=== PATIENT | female | born 1990 | race Caucasian/White ===

== ENCOUNTER 2017-09-15 08:06 | Emergency (ER) | payer MEDICAID ==
--- NOTE | 2017-09-15 08:36 | EDM.PDOC ---
ED HPI GENERAL MEDICAL PROBLEM - General Chief Complaint: ENT Problem Stated Complaint: SORE THROAT Time Seen by Provider: 09/15/17 08:17 Source of Information: Reports: Patient History Limitations: Reports: No Limitations - History of Present Illness INITIAL COMMENTS - FREE TEXT/NARRATIVE: History of present illness: []Patient had a fever 4 days of sore throat for 3 days she denies any cough, nausea, vomiting or diarrhea. She did have a mild headache but now her only symptom is sore throat. She is not had any exposures to strep but has not had strep in the past. Review of systems: As per history of present illness and below otherwise all systems reviewed and negative. Past medical history: As per history of present illness and as reviewed below otherwise noncontributory. Surgical history: As per history of present illness and as reviewed below otherwise noncontributory. Social history: No reported history of drug or alcohol abuse. Family history: As per history of present illness and as reviewed below otherwise noncontributory. Physical exam: General: Well developed, well nourished in NAD HEENT: Atraumatic, normocephalic, pupils reactive, negative for conjunctival pallor or scleral icterus, mucous membranes moist, throat erythematous no plaques or exudates, neck supple, nontender, trachea midline. No stridor Lungs: Clear to auscultation, breath sounds equal bilaterally, chest nontender. Heart: S1S2, regular, negative for clicks, rubs, or JVD. Abdomen: Soft, nondistended, nontender. Negative for masses or hepatosplenomegaly. Negative for costovertebral tenderness. Pelvis: Stable nontender. Genitourinary: Deferred. Rectal: Deferred. Extremities: Atraumatic, negative for cords or calf pain. Neurovascular unremarkable. Neuro: Awake, alert, oriented. Cranial nerves II through XII unremarkable. Cerebellum unremarkable. Motor and sensory unremarkable throughout. Exam nonfocal. Diagnostics: []Rapid strep and Strep culture initially positive Therapeutics: [] Impression: []Strep throat Plan: []Z-Fabián as directed follow-up with PMD return if symptoms worsen Definitive disposition and diagnosis as appropriate pending reevaluation and review of above. Throat Pain Score (Numeric/FACES): 8 - Related Data Allergies Allergy/AdvReac Type Severity Reaction Status Date / Time amoxicillin Allergy Rash Verified 09/15/17 08:29 Penicillins Allergy Anaphylactic Verified 09/15/17 08:29 Shock Home Meds: Home Meds Azithromycin [Zithromax] 250 mg PO DAILY #6 tablet 09/15/17 [Rx] Past Medical History - Past Health History Medical/Surgical History: Denies Medical/Surgical History Social & Family History - Family History Family Medical History: Noncontributory - Tobacco Use Smoking Status *Q: Current Every Day Smoker Years of Tobacco use: 1 Packs/Tins Daily: 1 - Caffeine Use Caffeine Use: Reports: Coffee, Soda - Recreational Drug Use Recreational Drug Use: No ED ROS ENT - Review of Systems Review Of Systems: See Below (See history of present illness) ED EXAM, ENT - Physical Exam Exam: See Below (See history of present illness) Course - Vital Signs Last Recorded V/S: Last Vital Signs Temp 36.3 C 09/15/17 08:24 Pulse 92 09/15/17 08:24 Resp 20 09/15/17 08:24 BP 120/78 09/15/17 08:24 Pulse Ox 99 09/15/17 08:24 Departure - Departure Time of Disposition: :28 Disposition: Home, Self-Care 01 Condition: Good Clinical Impression: Strep throat - Discharge Information Prescriptions: Azithromycin [Zithromax] 250 mg PO DAILY #6 tablet Referrals: PCP,None [Primary Care Provider] - Forms: ED Department Discharge Additional Instructions: The following information is given to patients seen in the emergency department who are being discharged to home. This information is to outline your options for follow-up care. We provide all patients seen in our emergency department with a follow-up referral. The need for follow-up, as well as the timing and circumstances, are variable depending upon the specifics of your emergency department visit. If you don't have a primary care physician on staff, we will provide you with a referral. We always advise you to contact your personal physician following an emergency department visit to inform them of the circumstance of the visit and for follow-up with them and/or the need for any referrals to a consulting specialist. The emergency department will also refer you to a specialist when appropriate. This referral assures that you have the opportunity for follow-up care with a specialist. All of these measure are taken in an effort to provide you with optimal care, which includes your follow-up. Under all circumstances we always encourage you to contact your private physician who remains a resource for coordinating your care. When calling for follow-up care, please make the office aware that this follow-up is from your recent emergency room visit. If for any reason you are refused follow-up, please contact the [facility] Emergency Department at and asked to speak to the emergency department charge nurse. Chuck as directed follow-up with PMD [facility] [address] [place] [id number]
== END 2017-09-15 09:37 | disposition home or self-care (01) ==
LOC: MW.ED 08:06
DX: J02.0 Streptococcal pharyngitis (principal); F17.210 Nicotine dependence, cigarettes, uncomplicated; Z88.1 Allergy status to other antibiotic agents; Z88.0 Allergy status to penicillin
CPT/HCPCS: 87880; 99282; 99283

== ENCOUNTER 2017-09-18 10:02 | Emergency (ER) | payer MEDICAID ==
--- NOTE | 2017-09-18 10:16 | EDM.PDOC ---
ED HPI GENERAL MEDICAL PROBLEM - General Chief Complaint: Upper Extremity Injury/Pain Stated Complaint: RT WRIST HURTS Time Seen by Provider: 09/18/17 10:14 Source of Information: Reports: Patient History Limitations: Reports: No Limitations - History of Present Illness INITIAL COMMENTS - FREE TEXT/NARRATIVE: History of present illness: [27-year-old female whose in complaining of right forearm pain. Patient indicates it hurts to rotate her wrist internally. Patient denies any known trauma indicates she woke up that way approximate or 3 days ago and it has gotten progressively worse. Patient acute she does have a splint for her other hand are provided motion injury but this has been her good hand.] Review of systems: As per history of present illness and below otherwise all systems reviewed and negative. Past medical history: As per history of present illness and as reviewed below otherwise noncontributory. Surgical history: As per history of present illness and as reviewed below otherwise noncontributory. Social history: No reported history of drug or alcohol abuse. Family history: As per history of present illness and as reviewed below otherwise noncontributory. Physical exam: HEENT: Atraumatic, normocephalic, pupils reactive, negative for conjunctival pallor or scleral icterus, mucous membranes moist, throat clear, neck supple, nontender, trachea midline. Lungs: Clear to auscultation, breath sounds equal bilaterally, chest nontender. Heart: S1S2, regular, negative for clicks, rubs, or JVD. Abdomen: Soft, nondistended, nontender. Negative for masses or hepatosplenomegaly. Negative for costovertebral tenderness. Pelvis: Stable nontender. Genitourinary: Deferred. Rectal: Deferred. Extremities: Right forearm without deformity but with some point tenderness on the ulnar aspect guarding with rotation passive and active, negative for cords or calf pain. Neurovascular unremarkable. Neuro: Awake, alert, oriented. Cranial nerves II through XII unremarkable. Cerebellum unremarkable. Motor and sensory unremarkable throughout. Exam nonfocal. Diagnostics: [X-ray right wrist] Therapeutics: [Splint] Impression: [#1 wrist pain] Plan: [Splint, OTC pain medicine, follow-up with orthopedic] Definitive disposition and diagnosis as appropriate pending reevaluation and review of above. Right Arm Pain Score (Numeric/FACES): 9 - Related Data Allergies Allergy/AdvReac Type Severity Reaction Status Date / Time amoxicillin Allergy Rash Verified 09/18/17 10:28 Penicillins Allergy Anaphylactic Verified 09/18/17 10:28 Shock Home Meds: Home Meds Azithromycin [Zithromax] 250 mg PO DAILY #6 tablet 09/15/17 [Rx] Past Medical History - Past Health History Medical/Surgical History: Denies Medical/Surgical History Social & Family History - Family History Family Medical History: Noncontributory - Tobacco Use Smoking Status *Q: Current Every Day Smoker Years of Tobacco use: 1 Packs/Tins Daily: 1 - Caffeine Use Caffeine Use: Reports: Coffee, Soda - Recreational Drug Use Recreational Drug Use: No Review of Systems - Review of Systems Review Of Systems: See Below (History of present illness) ED EXAM, GENERAL - Physical Exam Exam: See Below (See history of present illness) Course - Vital Signs Last Recorded V/S: Last Vital Signs Temp 36.2 C 09/18/17 10:25 Pulse 88 09/18/17 10:25 Resp 18 09/18/17 10:25 BP 115/78 09/18/17 10:25 Pulse Ox 99 09/18/17 10:25 - Orders/Labs/Meds Orders: Active Orders 24 hr Category Date Time Status Wrist Comp Min 3V Rt [CR] Stat Exams 09/18/17 10:08 Taken Labs: Laboratory Tests 09/18/17 Range/Units 10:12 Urine HCG, Qual NEGATIVE (NEGATIVE) Departure - Departure Time of Disposition: 11:34 Disposition: Home, Self-Care 01 Condition: Good Clinical Impression: Wrist pain - Discharge Information Instructions: Cast or Splint Care, [id number] Referrals: PCP,None [Primary Care Provider] - Forms: ED Department Discharge Additional Instructions: The following information is given to patients seen in the emergency department who are being discharged to home. This information is to outline your options for follow-up care. We provide all patients seen in our emergency department with a follow-up referral. The need for follow-up, as well as the timing and circumstances, are variable depending upon the specifics of your emergency department visit. If you don't have a primary care physician on staff, we will provide you with a referral. We always advise you to contact your personal physician following an emergency department visit to inform them of the circumstance of the visit and for follow-up with them and/or the need for any referrals to a consulting specialist. The emergency department will also refer you to a specialist when appropriate. This referral assures that you have the opportunity for follow-up care with a specialist. All of these measure are taken in an effort to provide you with optimal care, which includes your follow-up. Under all circumstances we always encourage you to contact your private physician who remains a resource for coordinating your care. When calling for follow-up care, please make the office aware that this follow-up is from your recent emergency room visit. If for any reason you are refused follow-up, please contact the [facility] Emergency Department at and asked to speak to the emergency department charge nurse. Keep splint on as directed Follow-up with or so is referred Return to ED as needed as discussed [facility] [address], [address] [place] [address]
--- NOTE | 2017-09-19 15:12 | CR ---
EXAM DATE: 09/18/17 PATIENT'S AGE: 27 Patient: VICKI SILVA Facility: [place], [place] Site . Site : 1990 Study: XRay Extremity Right wrist [id number]/29/2017 11:16:54 AM Ordering Physician: Doctor Heart Final Report: HISTORY: Right wrist swelling, decreased range of motion. TECHNIQUE: Three views of the right wrist. COMPARISON: No prior. FINDINGS: There is no acute fracture. Ulnar minus variance is present. Mild arthrosis of the DRUJ. No erosions. No radiopaque foreign body or abnormal soft tissue gas. IMPRESSION: 1. No acute fracture. 2. Ulnar minus variance. Dictated by Ethan Carson MD @ 09/18/2017 11:29:52 AM Dictated by: Ethan Carson MD @ 09/18/2017 11:29:57 (Electronic Signature) Report Signed by Proxy. MTDCurtis
== END 2017-09-18 11:50 | disposition home or self-care (01) ==
LOC: MW.ED 10:02
DX: M25.531 Pain in right wrist (principal); Z88.1 Allergy status to other antibiotic agents; F17.210 Nicotine dependence, cigarettes, uncomplicated; Z88.0 Allergy status to penicillin
CPT/HCPCS: 73110-26-RT; 73110-RT; 81025; 99282; 99283

== ENCOUNTER 2018-05-13 21:46 | Emergency (ER) | payer SELFPAY ==
[2018-05-13] MEDS ORDERED: Benzocaine 20% Topical Spray UD MUCMEM ONE (22:02)
[2018-05-13] MEDS ORDERED: Lidocaine 2% Viscous Solution 15 ML Cup PO ONE (22:03)
--- NOTE | 2018-05-13 22:10 | EDM.PDOC ---
ED HPI GENERAL MEDICAL PROBLEM - General Chief Complaint: General Stated Complaint: TOOTHACHE Time Seen by Provider: 05/13/18 21:55 - History of Present Illness INITIAL COMMENTS - FREE TEXT/NARRATIVE: HISTORY AND PHYSICAL: History of present illness: The patient is a healthy 27-year-old female who presents with complaints of pain to her upper left molar area where she has fillings and has a old chipped tooth that has started to cause pain today. She has had no fevers chills or other systemic complaints. She has some facial swelling has been using ice to the area. She's been using [id number] meds and they have not helped so she is here for pain management. She has not made an appointment yet with the dentist. Patient denies and says she took a test today which was negative Review of systems: As per history of present illness and below otherwise all systems reviewed and negative. Past medical history: As per history of present illness and as reviewed below otherwise noncontributory. Surgical history: As per history of present illness and as reviewed below otherwise noncontributory. Social history: No reported history of drug or alcohol abuse. Family history: As per history of present illness and as reviewed below otherwise noncontributory. Physical exam: General: Well-developed well-nourished female was only slight swelling of the left side of her face and vital signs were noted by me HEENT: Atraumatic, normocephalic, pupils reactive, negative for conjunctival pallor or scleral icterus, mucous membranes moist, throat clear, neck supple, nontender, trachea midline. There is no cervical adenopathy or nuchal rigidity. There are several areas of dental decay and also poor filling seen the most noteworthy is the left upper molar area where there are 3 teeth with old silver fillings and there is tenderness to palpation of all of those but no gum swelling or fluctuance. Lungs: Clear to auscultation, breath sounds equal bilaterally, chest nontender. Heart: S1S2, regular rate and rhythm no overt murmurs Abdomen: Soft, nondistended, nontender. NABS Pelvis: Deferred Genitourinary: Deferred. Rectal: Deferred. Extremities: Atraumatic, negative for cords or calf pain. Neurovascular unremarkable. Neuro: Awake, alert, oriented. Cranial nerves II through XII unremarkable. Cerebellum unremarkable. Motor and sensory unremarkable throughout. Exam nonfocal. Diagnostics: [] Therapeutics: Dental balls I will give him clindamycin as the patient has an allergy to amoxicillin, the dental balls as above, and some tramadol for sleep. Impression: Dental pain/caries Definitive disposition and diagnosis as appropriate pending reevaluation and review of above. 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 [No Known Home Meds] 05/13/18 [History] Past Medical History - Past Health History Medical/Surgical History: Denies Medical/Surgical History HEENT History: Reports: None Cardiovascular History: Reports: None Respiratory History: Reports: None Gastrointestinal History: Reports: None Genitourinary History: Reports: None TOE LASTER History: Reports: Musculoskeletal History: Reports: None Neurological History: Reports: None Psychiatric History: Reports: None Endocrine/Metabolic History: Reports: None Hematologic History: Reports: None Immunologic History: Reports: None Oncologic (Cancer) History: Reports: None Dermatologic History: Reports: None - Infectious Disease History Infectious Disease History: Reports: None - Past Surgical History Head Surgeries/Procedures: Reports: None Social & Family History - Family History Family Medical History: Noncontributory - Tobacco Use Smoking Status *Q: Current Some Day Smoker Years of Tobacco use: 1 Packs/Tins Daily: 0.5 - Caffeine Use Caffeine Use: Reports: Coffee, Soda - Recreational Drug Use Recreational Drug Use: No ED ROS GENERAL - Review of Systems Review Of Systems: ROS reveals no pertinent complaints other than HPI. ED EXAM, GENERAL - Physical Exam Exam: See Below (See dictation) Course - Vital Signs Last Recorded V/S: Last Vital Signs Temp 36.2 C 05/13/18 21:54 Pulse 81 05/13/18 21:54 Resp 18 05/13/18 21:54 BP 111/74 05/13/18 21:54 Pulse Ox 98 05/13/18 21:54 - Orders/Labs/Meds Meds: Medications Discontinued Medications Generic Name Dose Route Start Last Admin Trade Name Freq PRN Reason Stop Dose Admin Benzocaine 2 each 05/13/18 22:02 Hurricaine One 20% MUCMEM 05/13/18 22:03 ONETIME ONE Lidocaine HCl 15 ml 05/13/18 22:03 Xylocaine 2% Viscous PO 05/13/18 22:04 ONETIME ONE Departure - Departure Time of Disposition: 22:09 Disposition: Home, Self-Care 01 Condition: Good Clinical Impression: Pain, dental - Discharge Information Referrals: PCP,None [Primary Care Provider] - Additional Instructions: The following information is given to patients seen in the emergency department who are being discharged to home. This information is to outline your options for follow-up care. We provide all patients seen in our emergency department with a follow-up referral. The need for follow-up, as well as the timing and circumstances, are variable depending upon the specifics of your emergency department visit. If you don't have a primary care physician on staff, we will provide you with a referral. We always advise you to contact your personal physician following an emergency department visit to inform them of the circumstance of the visit and for follow-up with them and/or the need for any referrals to a consulting specialist. The emergency department will also refer you to a specialist when appropriate. This referral assures that you have the opportunity for followup care with a specialist. All of these measure are taken in an effort to provide you with optimal care, which includes your followup. Under all circumstances we always encourage you to contact your private physician who remains a resource for coordinating your care. When calling for followup care, please make the office aware that this follow-up is from your recent emergency room visit. If for any reason you are refused follow-up, please contact the [facility] emergency department at and ask to speak to the emergency department charge nurse. [facility] Primary care- Internal [place] [address] Please use the list of resources you have been given today to find a dentist for further definitive care and management of your tooth problem. Ice to face for swelling and use [id number] Tylenol and ibuprofen as well as the dental balls you have been given today. Take clindamycin you have been given until finished. Use the tramadol as needed for sleep only and only take them when you're at home and going to bed. Return to ER as needed and as discussed
[2018-05-13] MEDS ORDERED: traMADol 50 MG Tab PO ONE (22:30)
== END 2018-05-13 22:45 | disposition home or self-care (01) ==
LOC: MW.ED 21:46
DX: K02.9 Dental caries, unspecified (principal); F17.210 Nicotine dependence, cigarettes, uncomplicated; Z88.0 Allergy status to penicillin
CPT/HCPCS: 99283; A9270

== ENCOUNTER 2019-11-12 14:33 | Emergency (ER) | payer MEDICAID ==
[2019-11-12] MEDS ORDERED: Azithromycin 250 MG Tab PO ONE (16:37)
--- NOTE | 2019-11-12 16:44 | EDM.PDOC ---
ED HPI GENERAL MEDICAL PROBLEM - General Chief Complaint: ENT Problem Stated Complaint: STREP Time Seen by Provider: 11/12/19 16:00 Source of Information: Reports: Patient History Limitations: Reports: No Limitations - History of Present Illness Onset: Gradual Location: Reports: Other (throat) Severity: Mild Worsens with: Reports: Eating Associated Symptoms: Reports: No Other Symptoms Throat Pain Score (Numeric/FACES): 3 - Related Data Allergies Allergy/AdvReac Type Severity Reaction Status Date / Time amoxicillin Allergy Rash Verified 11/12/19 16:06 Penicillins Allergy Anaphylactic Verified 11/12/19 16:06 Shock Home Meds: Home Meds Azithromycin 250 mg PO TID 7 Days #21 tablet 11/12/19 [Rx] Past Medical History - Past Health History Medical/Surgical History: Denies Medical/Surgical History HEENT History: Reports: None Cardiovascular History: Reports: None Respiratory History: Reports: None Gastrointestinal History: Reports: None Genitourinary History: Reports: None 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: Musculoskeletal History: Reports: None Neurological History: Reports: None Psychiatric History: Reports: None Endocrine/Metabolic History: Reports: None Hematologic History: Reports: None Immunologic History: Reports: None Oncologic (Cancer) History: Reports: None Dermatologic History: Reports: None - Infectious Disease History Infectious Disease History: Reports: None - Past Surgical History Head Surgeries/Procedures: Reports: None Social & Family History - Family History Family Medical History: Noncontributory - Tobacco Use Smoking Status *Q: Current Every Day Smoker Years of Tobacco use: 3 Packs/Tins Daily: 0.5 - Caffeine Use Caffeine Use: Reports: Coffee, Soda - Recreational Drug Use Recreational Drug Use: No ED ROS ENT - Review of Systems Review Of Systems: See Below Constitutional: Reports: No Symptoms HEENT: Reports: Throat Pain (right side of throat.) Respiratory: Reports: No Symptoms Endocrine: Reports: No Symptoms GI/Abdominal: Reports: No Symptoms : Reports: No Symptoms Musculoskeletal: Reports: No Symptoms Skin: Reports: No Symptoms Neurological: Reports: No Symptoms Psychiatric: Reports: No Symptoms Hematologic/Lymphatic: Reports: No Symptoms Immunologic: Reports: No Symptoms ED EXAM, ENT - Physical Exam Exam: See Below Exam Limited By: No Limitations General Appearance: Alert, WD/WN, No Apparent Distress Eye Exam: Bilateral Eye: Normal Inspection, PERRL Ears: Normal External Exam, Normal Canal, Hearing Grossly Normal, Normal TMs Nose: Normal Inspection, Normal Mucousa, No Blood Mouth/Throat: Tonsillar Erythema, Tonsillar Exudates (right and to a lesser extent the left.) Head: Atraumatic, Normocephalic Neck: Lymphadenopathy (R) Respiratory/Chest: No Respiratory Distress, Lungs Clear, Normal Breath Sounds, No Accessory Muscle Use, Chest Non-Tender Cardiovascular: Normal Peripheral Pulses, Regular Rate, Rhythm, No Edema, No Gallop, No JVD, No Murmur, No Rub GI/Abdominal: Normal Bowel Sounds, Soft, Non-Tender, No Organomegaly, No Distention, No Abnormal Bruit, No Mass Back: Normal Inspection, Full Range of Motion Extremities: Normal Inspection, Normal Range of Motion, Non-Tender, No Pedal Edema, Normal Capillary Refill Neurological: Alert, Oriented, CN II-XII Intact, Normal Cognition, Normal Gait, Normal Reflexes, No Motor/Sensory Deficits Skin: Warm, Dry, Intact, Normal Color, No Rash Course - Vital Signs Last Recorded V/S: Last Vital Signs Temp Pulse 109 H 11/12/19 16:08 Resp BP 126/87 11/12/19 16:08 Pulse Ox 98 11/12/19 16:08 - Orders/Labs/Meds Meds: Medications Discontinued Medications Generic Name Dose Route Start Last Admin Trade Name Maggi PRN Reason Stop Dose Admin Azithromycin 250 mg 11/12/19 16:37 Zithromax PO 11/12/19 16:38 Q24H ONE Departure - Departure Time of Disposition: 16:42 Disposition: Home, Self-Care 01 Condition: Good Clinical Impression: Strep pharyngitis, Tonsillitis - Discharge Information *PRESCRIPTION DRUG MONITORING PROGRAM REVIEWED*: Yes *COPY OF PRESCRIPTION DRUG MONITORING REPORT IN PATIENT NANCY: Yes Instructions: Strep Throat Referrals: PCP,None [Primary Care Provider] - Additional Instructions: Take all medications as directed. Drink plenty of fluids for the next two to three days. Return to the ED if your condition gets worse. Sepsis Event Note - Evaluation Sepsis Screening Result: No Definite Risk - Focused Exam Vital Signs: Vital Signs Pulse BP Pulse Ox 11/12/19 16:08 109 H 126/87 98 Date Exam was Performed: 11/12/19 Time Exam was Performed: 16:39
== END 2019-11-12 17:15 | disposition home or self-care (01) ==
LOC: MW.ED 14:33
DX: J02.0 Streptococcal pharyngitis (principal); F17.210 Nicotine dependence, cigarettes, uncomplicated; Z88.0 Allergy status to penicillin
CPT/HCPCS: 87880; 99283; A9270; 99282